=== PATIENT | male | born 1960 | race Caucasian/White ===

== ENCOUNTER 2016-11-26 10:27 | Inpatient (IN) | payer OTHER ==
[~2016-11-26] VITALS: Ht 172.7 cm; Wt 80.0 kg
[~2016-11-26 10:27] MED LIST: GABA-528 PO; WELLBUTRIN PO; [UNRECOGNIZED DRUG - REMARK]
[2016-11-26] MEDS ORDERED: SODIUM CHLORIDE 0.9% 1L BAG IV* STA (10:55)
[2016-11-26] MEDS ORDERED: PIPER-TAZO 3.375 GM IV (PMX) 100 ML IVPB STA (10:55)
[2016-11-26] MEDS ORDERED: CLINDAMYCIN 900 MG/D5W (PMX) 50 ML IVPB STA (10:55)
[2016-11-26] MEDS ORDERED: VANCOMYCIN 1 GM (PMX) 250 ML IVPB STA (10:55)
[2016-11-26] MEDS ORDERED: morphine 4 MG/ML VIAL IV STA (11:53)
[2016-11-26] MEDS ORDERED: ONDANSETRON 4 MG INJ IV STA (11:53)
[2016-11-26 12:12] LABS: BASOPHILS % 0.3 % (0.0-2.0); EOSINOPHILS % 0.3 % (0.0-7.0); HEMATOCRIT 39.6 % (42.0-52.0); HEMOGLOBIN 13.4 g/dl (14.0-18.0); LYMPHOCYTES # 1.7 10^3/ul (0.8-2.9); MEAN CORPUSCULAR HEMOGLOBIN 30.2 pg (29.0-33.0); MEAN CORPUSCULAR VOLUME 88.8 fl (82.0-101.0); MEAN PLATELET VOLUME 7.6 fl (7.4-10.4); MONOCYTE # 1.1 10^3/ul (0.3-0.9); MONOCYTES % 8.6 % (0.0-11.0); NEUTROPHILS % 77.8 % (39.0-77.0); PLATELET COUNT 275 10^3/UL (140-440); RED BLOOD COUNT 4.46 10^6/ul (4.70-6.10); RED CELL DISTRIBUTION WIDTH 13.5 % (11.5-14.5); UNCORRECTED WBC 12.9 10^3/ul (4.8-10.8); WHITE BLOOD COUNT 12.9 10^3/ul (4.8-10.8)
[2016-11-26 12:15] LABS: CONDITION 1
[2016-11-26 12:22] LABS: INR 0.93; PROTIME 12.5 Sec (12.2-14.2)
[2016-11-26 12:23] LABS: PARTIAL THROMBOPLASTIN TIME 29.7 Sec (25.0-35.0)
[2016-11-26] MEDS ORDERED: ACETAMINOPHEN 500 MG TAB PO STA (12:37)
--- NOTE | 2016-11-26 12:45 | RADRPT ---
PROCEDURE: XR right tibia/fibula. CLINICAL INDICATION: Leg pain TECHNIQUE: Two views available for review. COMPARISON: None available FINDINGS: There is a 7 x 18 mm soft tissue density involving the medial aspect of the proximal tibia. The osseous structures are normal in mineralization, architecture and alignment. No fractures are i dentified. No osseous lesions are identified. The joints are unremarkable. The soft tissues are u nremarkable. IMPRESSION: 7 x 18 mm soft tissue density involving the medial aspect of the proximal tibia. No osseous abnormality identified Recommendations: If clinically warranted MRI would be useful for further evaluation RPTAT: HGDB .Héctor Mcdonald MD, MD Date Time Electronically viewed and signed by .Héctor Mcdonald MD, on 11/26/2016 12:45 .B/
[2016-11-26 12:49] LABS: ALBUMIN 3.7 g/dl (3.3-4.9)
[2016-11-26 12:50] LABS: POTASSIUM 4.6 mmol/L (3.5-5.1)
[2016-11-26 12:51] LABS: ADD UMIC NO; URINE BILIRUBIN (Dip) NEGATIVE (NEGATIVE); URINE BLOOD (Dip) NEGATIVE (NEGATIVE); URINE COLOR LT. YELLOW (YELLOW); URINE GLUCOSE (Dip) NEGATIVE (NEGATIVE); URINE KETONES (Dip) NEGATIVE (NEGATIVE); URINE LEUKOCYTE ESTERASE (Dip) NEGATIVE (NEGATIVE); URINE NITRITE (Dip) NEGATIVE (NEGATIVE); URINE TOTAL PROTEIN (Dip) NEGATIVE (NEGATIVE); URINE UROBILINOGEN (Dip) 0.2 E.U./dL (0.1-1.0)
[2016-11-26 12:52] LABS: ALBUMIN/GLOBULIN RATIO 0.94; BILIRUBIN,INDIRECT 0.3 mg/dl (0-1.1); BILIRUBIN,TOTAL 0.3 mg/dl (0.2-1.3); CREATININE 0.7 mg/dl (0.61-1.24); TOTAL PROTEIN 7.6 g/dl (6.1-8.1)
[2016-11-26] MEDS ORDERED: IBUPROFEN 800 MG TAB PO ONE (13:00)
[2016-11-26 13:04] LABS: CALCIUM 8.8 mg/dl (8.4-10.2)
--- NOTE | 2016-11-26 13:20 | ERA ---
ER Documentation Chief Complaint Date/Time DATE: 11/26/16 TIME: 13:15 Chief Complaint FEVER AND FLU LIKE SYMPTOMS FOR UNK TIME. NO DISTRESS NOTED HPI This is a 56-year-old homeless male that presents to the emergency department complaining of a tactile fever shaking and chills for several days. He indicates that for the past 1 month he has had a painful discoloration of the skin on the right lower extremity. He denies any calf tenderness or swelling. He did not take any analgesic medication prior to arrival nor did he take any antipyretics. 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 He denies any abdominal pain. He has no chest pain or pressure that radiates to the neck or back or jaw. He has no shortness of breath at rest or exertion. He denies any hemoptysis hematemesis or melanotic stools. He denies productive or nonproductive cough. ROS All systems reviewed and are negative except as per history of present illness. Medications Home Meds Discontinued Reported Medications [Risperidal, Unk Dose, Bid] No Conflict Check 03/24/13 Gabapentin* (Gabapentin*) 800 Mg Tablet, PO HS 03/24/13 Gabapentin* (Gabapentin*) 800 Mg Tablet, 1600 MG PO DAILY 03/24/13 [Wellbutrin] No Conflict Check, 100 MG PO BID 03/24/13 Allergies Allergies: Coded Allergies: No Known Allergy (Unverified , 03/24/13) PMhx/Soc History of Surgery: Yes Hx Psychiatric Problems: Yes (DEPRESSION, BIPOLAR, SCHIZOPHRENIA) Hx Miscellaneous Medical Probl: Yes (HEP. C) Hx Alcohol Use: No Hx Substance Use: No Hx Tobacco Use: No Physical Exam Vitals Vital Signs Date Time Temp Pulse Resp B/P Pulse Ox O2 Delivery O2 Flow Rate FiO2 11/26/16 10:37 102.1 112 22 168/77 96 Physical Exam Constitutional:Well-developed. Well-nourished. Disheveled HEENT:Normocephalic. Atraumatic.Pupils were equal round reactive to light. Moist mucous membranes.No tonsillar exudates. No nasoseptal hematoma. No hemotympanum. No rhinorrhea. Neck: No nuchal rigidity. No lymphadenopathy. No posterior cervical spine tenderness or step-offs. Respiratory: Not using accessory muscles of respiration.Lungs were clear to auscultation bilaterally. No rhonchi. No rales. No wheezing. Cardiovascular: Tachycardic with regular rhythm.No murmurs. No rubs were appreciated.S1, S2 normal. Distal pulses are palpable 2+ bilaterally. GI: Abdomen was soft. Nontender. Non Distended. No pulsatile abdominal masses or bruits. No rebound. No guarding. Bowel sounds were present and normal. Muscle skeletal: Full range of motion of both the upper and lower extremities bilaterally.Normal muscle tone.No assymetrical calf tenderness or swelling. Negative Homans sign Skin: No petechia, no purpura. No lesions on the palms or the soles of the feet. No maculopapular rash. 2 cm x 2 cm well-circumscribed raised nodule on the anterior mid shaft of the right lower extremity with no surrounding subcutaneous emphysema. Surrounding erythema warmth with no fluctuance. Reproducible tenderness however pain not out of proportion to physical exam. Compartments were soft of the bilateral lower extremities. NEURO: Patient was alert, awake, orientated x3.No facial droop. Gait observed and normal with no ataxia.Speech had regular rate and rhythm. No focal neurological deficits. Result Diagram: 11/26/16 1145 11/26/16 1145 Results 24 hrs Laboratory Tests Test 11/26/16 11:45 11/26/16 11:56 11/26/16 12:40 Activated Partial Thromboplast Time 29.7Sec Alanine Aminotransferase (ALT/SGPT) 81IU/L Albumin 3.7g/dl Albumin/Globulin Ratio 0.94 Alkaline Phosphatase 73IU/L Amylase Level 119U/L Anion Gap 15 Aspartate Amino Transf (AST/SGOT) 65IU/L Basophils # 0.010^3/ul Basophils % 0.3% Blood Urea Nitrogen 15mg/dl Calcium Level 8.8mg/dl Carbon Dioxide Level 28mmol/L Chloride Level 97mmol/L Creatinine 0.70mg/dl Direct Bilirubin 0.00mg/dl Eosinophils # 0.010^3/ul Eosinophils % 0.3% Globulin 3.90g/dl Glucose Level 87mg/dl Hematocrit 39.6% Hemoglobin 13.4g/dl INR International Normalized Ratio 0.93 Indirect Bilirubin 0.3mg/dl Lactic Acid Level 1.3mmol/L Lipase 307U/L Lymphocytes # 1.710^3/ul Lymphocytes % 13.0% Mean Corpuscular Hemoglobin 30.2pg Mean Corpuscular Hemoglobin Concent 34.0g/dl Mean Corpuscular Volume 88.8fl Mean Platelet Volume 7.6fl Monocytes # 1.110^3/ul Monocytes % 8.6% Neutrophils # 10.010^3/ul Neutrophils % 77.8% Nucleated Red Blood Cells # 0.010^3/ul Nucleated Red Blood Cells % 0.0/100WBC Platelet Count 86292^3/UL Potassium Level 4.6mmol/L Prothrombin Time 12.5Sec Prothrombin Time Ratio 1.0 Red Blood Count 4.4610^6/ul Red Cell Distribution Width 13.5% Sodium Level 135mmol/L Total Bilirubin 0.3mg/dl Total Protein 7.6g/dl White Blood Count 12.910^3/ul Urine Bilirubin NEGATIVE Urine Clarity CLEAR Urine Color LT. YELLOW Urine Glucose NEGATIVE% Urine Hemoglobin NEGATIVE Urine Ketones NEGATIVE Urine Leukocyte Esterase NEGATIVE Urine Nitrite NEGATIVE Urine Specific Foss 1.020 Urine Total Protein NEGATIVE Urine Urobilinogen 0.2 E.U./dL Urine pH 8.0 Ethyl Alcohol Level < 10.0mg/dl Current Medications Medications (Trade) Dose Ordered Sig/Camilla Route PRN Reason Start Time Stop Time Status Last Admin Dose Admin Sodium Chloride 2480 ml 2,480 ml BOLUS OVER 2 HOURS STAT IV* 11/26/16 10:55 11/26/16 10:57 DC 11/26/16 11:29 Vancomycin HCl 250 ml @ 125 mls/hr ONCE STAT IVPB 11/26/16 10:55 11/26/16 12:54 DC 11/26/16 13:22 Clindamycin HCl/ Dextrose 50 ml @ 50 mls/hr ONCE STAT IVPB 11/26/16 10:55 11/26/16 11:54 DC 11/26/16 13:22 Piperacillin Sod/ Tazobactam Sod (Zosyn 3.375gm/ 100 ml (Pmx)) 100 ml @ 100 mls/hr ONCE STAT IVPB 11/26/16 10:55 11/26/16 11:54 DC 11/26/16 11:29 Morphine Sulfate (morphine) 4 mg ONCE STAT IV 11/26/16 11:53 11/26/16 11:54 DC 11/26/16 12:54 Ondansetron HCl (Zofran Inj) 4 mg ONCE STAT IV 11/26/16 11:53 11/26/16 11:54 DC 11/26/16 12:54 Acetaminophen (Tylenol Tab) 1,000 mg ONCE STAT PO 11/26/16 12:37 11/26/16 12:38 DC 11/26/16 12:54 Ibuprofen (Motrin) 800 mg ONCE ONCE PO 11/26/16 13:00 11/26/16 13:01 DC 11/26/16 12:54 Procedures/MDM The patient presented to the emergency department with a spreading erythematous superficial infection of the skin and subcutaneous tissues. My differential diagnosis included but was not limited to necrotizing fasciitis, lymphangitis, thrombophlebitis, deep vein thrombosis, allergic reaction, neoplasm, gout or abscess. Predisposing factors of the progressive spread of erythema, warmth, pain and tenderness was considered such as lymphedema, tinea pedis, open wounds, prior trauma or surgery, pre-existing skin lesion (furuncle), retained foreign body, injection drug use or vascular or immune compromise. The patient was placed on antibiotics to cover Staphylococcus aureus, including resistant strains such as community-acquired methicillin-resistant S. aureus. The patient at this time did not have any evidence of necrotizing fasciitis his pain was not of proportion to physical exam. He did have leukocytosis with a significant fever and does have significant risk factors however for development of necrotizing fasciitis and therefore he will be admitted and prophylactically started on broad-spectrum antibiotics which included clindamycin, vancomycin, Zosyn. I obtained a CRP and ESR and his lactic acid was normal. There is no evidence of renal failure at this time. Influenza is currently pending. The patient will undergo an MRI of his lower extremity to rule out osteomyelitis but at this time there is no evidence of compartment syndrome and again there is no evidence of necrotizing fasciitis that would require emergent surgical intervention with a fasciotomy. A two-view radiograph of the right lower extremity was ordered and reviewed by myself and indicated to followin x 18 mm soft tissue density involving the medial aspect of the proximal tibia. No osseous abnormality identified The patient will be admitted in serious condition to the hospital is Dr. Waite with an anticipated stay of greater than 2 midnights Departure Diagnosis: Primary Impression: Fever Qualified Code: R50.9 - Fever, unspecified fever cause Additional Impressions: Sepsis affecting skin Osteomyelitis Qualified Code: M86.161 - Acute osteomyelitis of right tibia Condition: Serious TONAJOSEF Nov 26, 2016 13:20
[2016-11-26] MEDS ORDERED: ACETAMINOPHEN 325 MG TAB PO PRN ×2 (13:30→16:30)
[2016-11-26] MEDS ORDERED: ONDANSETRON 4 MG INJ IV PRN ×2 (13:30→16:30)
[2016-11-26 14:20] VITALS: TEMP 100.3
[2016-11-26 15:00] VITALS: BP 118/57; PULSE 101; RESP 20
[2016-11-26 15:37] VITALS: BP 118/57; RESP 22
[2016-11-26] MEDS ORDERED: ACETAMINOPHEN 650 MG SUPP PR PRN (16:30)
[2016-11-26] MEDS ORDERED: NACL 0.9% 3 ML SYG IV SCH (16:30)
[2016-11-26] MEDS ORDERED: DOCUSATE SODIUM 100 MG CAP PO PRN (16:30)
[2016-11-26] MEDS ORDERED: morphine 2 MG INJ IV PRN (16:30)
[2016-11-26 16:45] VITALS: Ht 172.7 cm; Wt 80.0 kg
[2016-11-26 16:57] LABS: BARBITURATES Negative (NEGATIVE); BENZODIAZEPINES Negative (NEGATIVE); CANNABINOIDS Negative (NEGATIVE); COCAINE Negative (NEGATIVE); OPIATES Negative (NEGATIVE)
[2016-11-26] MEDS ORDERED: VANCOMYCIN IV PER PHARMACY XX SCH (17:30)
[2016-11-26] MEDS: D5W-0.45 NACL + KCL 20 MEQ 1,000 ML IV SCH (17:45)
[2016-11-26] MEDS: CEFTRIAXONE 1 GM/50 ML (PMX) 50 ML IVPB SCH (17:48)
--- NOTE | 2016-11-26 18:03 | CONS ---
DATE OF ADMISSION: 11/26/2016 DATE OF CONSULTATION: 11/26/2016 TYPE OF CONSULTATION: Infectious Disease. REASON FOR CONSULTATION: Antibiotic management. HISTORY OF PRESENT ILLNESS: Lex Nguyen is a 56-year-old homeless male who presents to the emergency r oom with fever and flu-like symptoms for an unknown time. He has had shaking chills for several day s. He indicates that over the past month he has had painful discoloration of his skin of the lower extremities. He denies any calf tenderness or swelling. He has a history of hepatitis secondary to IV drug abuse. He has not utilized any illicit drugs or alcohol for the last several years. He johnson s no chest pain, no pressure. His past problems include depression, bipolar affect and schizophreni a, and he has hepatitis C. PAST MEDICAL HISTORY: Operations as outlined. FAMILY HISTORY: SOCIAL HISTORY: He does not smoke, drink or abuse drugs. ALLERGIES: NONE TO PENICILLIN, SULFA OR FOODS. MEDICATIONS: Per chart. REVIEW OF SYSTEMS: As per HPI. PHYSICAL EXAMINATION: GENERAL: The patient is a well-developed, disheveled male who is alert, responsive, in no acute dis tress. VITAL SIGNS: Stable. He is afebrile. SKIN: Without generalized rash. HEENT: Within normal limits. NECK: Supple. LYMPH NODES: None palpable. CHEST: Decreased breath sounds at the bases. HEART: Without murmur or gallop. ABDOMEN: Soft, nontender, without organosplenomegaly or masses. EXTREMITIES: Without cyanosis, clubbing. He has 2 x 2 edema. He has a 2 x 2 cm well circumscribed raised nodule on the anterior mid shaft of the right lower extremity. No surrounding subcutaneous emphysema. He has surrounding erythema, warmth with no fluctuance. He has tenderness. RECTAL AND GENITAL: Deferred. NEUROLOGIC: No focal neurological abnormalities. ANCILLARY LABORATORY DATA: White count is 12.9, H and H of 13.4 and 39.6, platelet count 275,000. BUN and creatinine 15/0.7. IMPRESSION AND PLAN: The patient was given initial clindamycin and then started on vancomycin and Z osyn for cellulitis of his lower extremity. He does not have necrotizing fasciitis or deep vein thr ombophlebitis. He has erythema and essentially we want to rule out possibility of acute osteomyelit is of the mid shaft. His tibia and fibula showed a 7 x 18 soft tissue density involving the medial aspect of the proximal tibia. MRI may be warranted. I will dictate my findings to the hospitalist. Dictated By: FREYA MEDINA MD, JD/VIJAY Conf#: [id number] DID#: [id number]
--- NOTE | 2016-11-26 18:11 | HP ---
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 CHIEF COMPLAINT: Right lower extremity pain, and fever. HISTORY OF PRESENT ILLNESS: This is a 56-year-old gentleman with past medical history of drug abuse , hepatitis C, who according to the ER doctor, the patient is homeless, but patient stated that he l calvin in an apartment and does not have any roommate. He presented with right lower extremity dried ulcer and fever. The fever has been ongoing for the past 3 days. Patient has not sought any medica l treatment or seen a physician regarding this matter. Patient is very groggy, and it is difficult for him to stay awake during my physical examination. His urine drug screen was found to be negativ e for urine drug screen. Alcohol level was negative. The patient during the course of the emergency room was treated with Zosyn, clindamycin, vancomycin, normal saline, morphine, ibuprofen, and Zofr an. At this time, patient denies having any chest pain, shortness of breath, nausea, vomiting, diar zayra. No headache, dizziness, numbness, weakness. No change in visual acuity, diplopia, photophobi a. No abdominal pain. No nausea, vomiting, diarrhea. No heat and cold intolerance. No hair loss. No recent travel history. No sick contact. He denies having any use of sharing needles with anyon e. He denies any use of any heroin during his lifetime. PAST MEDICAL AND SURGICAL HISTORY: As above per HPI. MEDICATIONS: No active medications. ALLERGIES: NO KNOWN DRUG ALLERGIES. FAMILY HISTORY: Noncontributory. SOCIAL HISTORY: Presumably homeless. Positive for history of drug use as per james ceja. REVIEW OF SYSTEMS: As above per HPI. Otherwise, review of systems has been found to be negative. PHYSICAL EXAMINATION: VITAL SIGNS: Temperature 101.4, pulse 101, respiration rate 22, blood pressure 118/57, oxygen satur ation 96% on room air. GENERAL APPEARANCE: The patient is lying in bed comfortably, without any distress. He is awake, al ert, oriented. He is able to answer my questions properly. Mildly disheveled. He has several tatt oos all around his body, on his anterior chest, upper extremities, axillary region, and bilateral lo wer extremities. NECK: Supple. Trachea is midline. No lymph node. EYES AND ENT: Conjunctivae and lids are normal. Pupils are normal. Extraocular normal. Hearing g rossly normal. Lips are normal. Oral mucosa mildly dry. NECK: Supple. Trachea is midline. No lymphadenopathy. RESPIRATORY: Effort is normal. Clear to auscultation bilaterally. CARDIOVASCULAR: Normal S1, S2. Regular rhythm and rate. No murmur, no bruits, no edema. Peripher al pulses, radial pulses palpable. Cap refill is normal. CHEST: Normal expansion of thorax during inspiration. GASTROINTESTINAL: Abdomen is soft, nontender, not distended. Bowel sounds present. No guarding, n o rebound. GENITOURINARY: Deferred. MUSCULOSKELETAL: Upper and lower extremities within normal limits. There is dry ulcer at the anter ior aspect of his right armstrong, nontender. There is no evidence of erythema. NEUROLOGIC: Cranial nerves II through XII are grossly intact. PSYCHIATRIC: He is easily arousable. Able to follow commands. LABS: UDS is negative. WBC 12.9, hemoglobin 13.4, hematocrit 39.6, platelets 275. Sodium 135, pot assium 4.6, chloride 97, bicarbonate 28, BUN 15, creatinine 0.70, glucose 87, lactic acid negative a t 1.3, AST 65, ALT 81. CRP 3.2, lipase 307. The rest of the LFTs are within normal limits. ASSESSMENT AND PLAN: 1. Questionable osteomyelitis of the right lower extremity with x-ray finding of 7 x 18 mm soft tis eric density involving the medial aspect of the proximal tibia. This also could be secondary to an ab scess versus cellulitis. Infectious disease doctor has been consulted. Patient has been placed on cefepime and vancomycin. Follow up ID recommendation. Obtain MRI of the right lower extremity. 2. History of hepatitis C, with normal LFTs. 3. Pancreatitis. At this time, make patient n.p.o., IV fluid. Follow up lipase level in a.m. In case the lipase level continues to be elevated, will obtain a GI consultation. 4. For deep venous thrombosis, on Lovenox. 4. For gastrointestinal prophylaxis, on proton pump inhibitor. 5. We will continue to monitor patient closely. Further recommendations, management, and treatment as per clinical course. Total amount of time was spent for evaluation of patient and admission workup, 40 minutes. Dictated By: IRIS COTTRELL/VIJAY Conf#: [id number] [facility]#: [id number]
[2016-11-26 19:25] VITALS: BP 146/76; RESP 20
[2016-11-26] MEDS: VANCOMYCIN 1 GM in NS 250 ML IVPB SCH (20:42)
[2016-11-27] MEDS: VANCOMYCIN 1 GM in NS 250 ML IVPB SCH ×2 (05:20→12:41)
[2016-11-27] MEDS: D5W-0.45 NACL + KCL 20 MEQ 1,000 ML IV SCH ×2 (05:29→12:41)
[2016-11-27] MEDS ORDERED: PANTOPRAZOLE (EC) 40 MG TAB PO SCH (06:00)
[2016-11-27 08:30] VITALS: BP 134/75; RESP 18
[2016-11-27] MEDS ORDERED: ENOXAPARIN 40 MG/0.4 ML SYG SC SCH (09:00)
[2016-11-27 11:03] LABS: HAAIG REFLEX REFLEX FILED
[2016-11-27 11:11] LABS: BASOPHILS % 0.3 % (0.0-2.0); EOSINOPHILS # 0.1 10^3/ul (0.0-0.5); HEMATOCRIT 39.6 % (42.0-52.0); HEMOGLOBIN 13.5 g/dl (14.0-18.0); LYMPHOCYTES # 1.9 10^3/ul (0.8-2.9); LYMPHOCYTES % 19.7 % (15.0-51.0); MEAN CORPUSCULAR HEMOGLOBIN 30.4 pg (29.0-33.0); MEAN CORPUSCULAR HGB CONC 34.1 g/dl (32.0-37.0); MEAN CORPUSCULAR VOLUME 89.2 fl (82.0-101.0); MEAN PLATELET VOLUME 7.4 fl (7.4-10.4); MONOCYTE # 0.6 10^3/ul (0.3-0.9); MONOCYTES % 6.3 % (0.0-11.0); NEUTROPHIL # 6.9 10^3/ul (1.6-7.5); NEUTROPHILS % 72.7 % (39.0-77.0); PLATELET COUNT 262 10^3/UL (140-440); RED BLOOD COUNT 4.44 10^6/ul (4.70-6.10); RED CELL DISTRIBUTION WIDTH 13.9 % (11.5-14.5); UNCORRECTED WBC 9.5 10^3/ul (4.8-10.8); WHITE BLOOD COUNT 9.5 10^3/ul (4.8-10.8)
[2016-11-27 11:22] LABS: CREATININE 0.67 mg/dl (0.61-1.24)
[2016-11-27 11:23] LABS: CALCIUM 8.8 mg/dl (8.4-10.2)
[2016-11-27 11:24] LABS: MAGNESIUM 2.2 mg/dl (1.7-2.5)
[2016-11-27 11:38] LABS: CONDITION 1
[2016-11-27 12:13] LABS: HEPATITIS B CORE ANTIBODY REACTIVE (NEGATIVE)
[2016-11-27 12:19] LABS: THYROID STIMULATING HORMONE 0.951 MIU/L (0.465-4.680)
--- NOTE | 2016-11-27 13:18 | RADRPT ---
PROCEDURE: XR Chest. CLINICAL INDICATION: Cough and fever. TECHNIQUE: Single frontal view. COMPARISON: None. FINDINGS: The lungs are clear. The heart size is normal. There is no pleural effusion. There is no pneumothorax. IMPRESSION: 1. Normal chest radiograph. RPTAT: QQ .Devyn Orona MD, Date Time Electronically viewed and signed by .Devyn Orona MD, on 11/27/2016 13:18 .R/
--- NOTE | 2016-11-27 14:14 | PN ---
DATE: 11/27/2016 INFECTIOUS DISEASE PROGRESS NOTE SUBJECTIVE: The patient is awake, lying comfortably in bed. He is spiking fevers with a T-max yest erday of 101.4, current afebrile. WBC today 9.5, no shift, no bands. BUN 15, creatinine 0.67. MICROBIOLOGY: The patient had an influenza swab that was negative. ANTIMICROBIALS: 1. Vancomycin. 2. Rocephin. ALLERGIES: NONE. PHYSICAL EXAMINATION: GENERAL: Well-developed, middle-aged man who is awake, in no distress. HEENT: Head atraumatic, normocephalic. Sclerae anicteric. Buccal mucosa dry. NECK: Supple, trachea midline. CHEST: Rise symmetrical. Breath sounds diminished to bases. HEART: S1, S2. ABDOMEN: Soft, bowel sounds present. EXTREMITIES: Without cyanosis. The patient has a right lower extremity with dry scab below knee th at does not look infected. ASSESSMENT: 1. Febrile illness. 2. History of hepatitis C and drug abuse. 3. History of depression and anxiety. PLAN: The patient remains stable, currently afebrile. We are going to discontinue vancomycin, cont inue Levaquin, await for cultures. We will order a chest x-ray to make sure he does not have pneumo keagan. Of note, the patient has elevated lipase, 596 today. Dictated By: DINORAH VINCENT [employer]ET[employer] CARD MERCHANDISER for FREYA ORELLANA/VIJAY Conf#: [id number] DID#: [id number]
--- NOTE | 2016-11-27 15:30 | PN ---
Date/Time of Note Date/Time of Note DATE: 11/27/16 TIME: 15:29 Assessment/Plan VTE Prophylaxis VTE Prophylaxis Intervention: LMWH Lines/Catheters IV C[facility]ter Type [facility]from [facility] Peripheral IV Assessment/Plan Chief Complaint/Hosp Course ASSESSMENT AND PLAN: 1. Questionable osteomyelitis of the right lower extremity with x-ray finding of 7 x 18 mm soft tissue density involving the medial aspect of the proximal tibia. This also could be secondary to an abscess versus cellulitis. Infectious disease doctor has been consulted. Patient has been placed on cefepime and vancomycin. Follow up ID recommendation. Obtain MRI of the right lower extremity. 2. History of hepatitis C, with normal LFTs. 3. Pancreatitis. At this time, make patient n.p.o., IV fluid. Follow up lipase level in a.m. 4. For deep venous thrombosis, on Lovenox. 4. For gastrointestinal prophylaxis, on proton pump inhibitor. We will continue to monitor patient closely. Further recommendations, management, and treatment as per clinical course. Problems: Subjective 24 Hr Interval Summary Free Text/Dictation Patient denies of any chest pain or shortness of breath Denies of any abdominal pain Exam/Review of Systems Vital Signs Vitals Vital Signs Date Time Temp Pulse Resp B/P Pulse Ox O2 Delivery O2 Flow Rate FiO2 11/27/16 08:30 98.2 69 18 134/75 97 11/26/16 15:00 Room Air Intake and Output 11/26/16 11/26/16 11/27/16 15:00 23:00 07:00 Intake Total 450 ml 925 ml Balance 450 ml 925 ml Exam General: The patient is well-developed, Not in acute distress. HEENT: Atraumatic, normocephalic. The pupils are equal and round . Neck: Supple with full range of motion. Chest: Normal expansion of the thorax during inspiration Lungs: Clear to auscultation bilaterally Heart: Normal S1-S2, Regular rhythm and rate. Abdomen: Soft , nontender, nondistended , bowel sounds are present. Extremities: Normal to inspection, no edema no cyanosis, right lower extremity dry ulcer with no erythema Neurologic: Normal mental status,The patient is awake, alert and oriented . Results Result Diagram: 11/27/16 1055 11/27/16 1055 Results 24 hrs Laboratory Tests Test 11/26/16 16:37 11/26/16 22:42 11/27/16 10:55 Lactic Acid Level 1.4 0.8 Anion Gap 12 Basophils # 0.0 Basophils % 0.3 Blood Morphology Comment Blood Urea Nitrogen 15 Calcium Level 8.8 Carbon Dioxide Level 29 Chloride Level 102 Creatinine 0.67 Eosinophils # 0.1 Eosinophils % 1.0 Glucose Level 154 Hematocrit 39.6 L Hemoglobin 13.5 L Hepatitis B Core Total Antibody REACTIVE H Hepatitis B Surface Antigen NEGATIVE Hepatitis C Antibody REACTIVE H Lipase 596 H Lymphocytes # 1.9 Lymphocytes % 19.7 Magnesium Level 2.2 Mean Corpuscular Hemoglobin 30.4 Mean Corpuscular Hemoglobin Concent 34.1 Mean Corpuscular Volume 89.2 Mean Platelet Volume 7.4 Monocytes # 0.6 Monocytes % 6.3 Neutrophils # 6.9 Neutrophils % 72.7 Nucleated Red Blood Cells # 0.0 Nucleated Red Blood Cells % 0.0 Platelet Count 262 Potassium Level 4.0 Red Blood Count 4.44 L Red Cell Distribution Width 13.9 Sodium Level 139 Thyroid Stimulating Hormone (TSH) 0.951 White Blood Count 9.5 # Medications Medications Current Medications Potassium Chloride/Dextrose/ Sod Cl (D5-1/2ns + KCl 20 Meq) 1,000 ml @ 75 mls/ hr [id number] IV Last administered on 11/27/16 12:41; Admin Dose 75 MLS/HR; Start 11/26/16 at 16:09 Ondansetron HCl (Zofran Inj) 4 mg Q6H PRN IV NAUSEA AND/OR VOMITING; Start at 16:30 Acetaminophen (Tylenol Tab) 650 mg Q6H PRN PO PAIN LEVEL 1-3 OR FEVER Last administered on 11/27/16 02:25; Admin Dose 650 MG; Start 11/26/16 at 16:30 Acetaminophen (Tylenol Supp) 650 mg Q6H PRN [place] PAIN LEVEL 1-3 OR FEVER; Start 11/26/16 at 16:30 Morphine Sulfate (morphine) 2 mg Q4H PRN IV SEVERE PAIN LEVEL 7-10; Start 11/26 at 16:30 Docusate Sodium (Colace) 100 mg Q12H PRN PO CONSTIPATION; Start 11/26/16 at 16: 30 Pantoprazole (Protonix Tab) 40 mg DAILY@06 PO Last administered on 11/27/16 05 :20; Admin Dose 40 MG; Start 11/27/16 at 06:00 Enoxaparin Sodium 40 mg 40 mg DAILY SC Last administered on 11/27/16 09:57; Admin Dose 40 MG; Start 11/27/16 at 09:00 Ceftriaxone Sodium 50 ml @ 100 mls/hr Q24H IVPB Last administered on 17:48; Admin Dose 100 MLS/HR; Start 11/26/16 at 17:30 Vancomycin HCl (Vancocin) 250 ml @ 125 mls/hr Q8H IVPB Last administered on 12:41; Admin Dose 125 MLS/HR; Start 11/26/16 at 21:00 Miscellaneous Information (*Rx Drug Level Order Reminder*) VANCO TROUGH @ 2, 000 ON... ONCE ONCE XX ; Start 11/27/16 at 20:00; Stop 11/27/16 at 20:01 IRIS KINNEY MD Nov 27, 2016 15:30
[2016-11-27] MEDS: CEFTRIAXONE 1 GM/50 ML (PMX) 50 ML IVPB SCH (17:01)
[2016-11-28 08:00] VITALS: BP 105/59; RESP 18
--- NOTE | 2016-11-28 08:01 | DS ---
Date/Time of Note Date/Time of Note DATE: 11/28/16 TIME: 07:50 Discharge Summary Admission/Discharge Info Admit Date/Time Nov 26, 2016 at 13:29 Discharge Date/Time Nov 27, 2016 at 17:15 Final Diagnosis Patient signed out AMA 1. Questionable osteomyelitis of the right lower extremity with x-ray finding of 7 x 18 mm soft tissue density involving the medial aspect of the proximal tibia. 2. History of hepatitis C, with normal LFTs. 3. Pancreatitis. Hospital Course This is a 56-year-old gentleman with past medical history of drug abuse, hepatitis C, who according to the ER doctor, the patient is homeless. He presented with right lower extremity dried ulcer and fever. The fever has been ongoing for the past 3 days. Patient has not sought any medical treatment or seen a physician regarding this matter. Patient is very groggy, and it is difficult for him to stay awake during my physical examination. His urine drug screen was found to be negative for urine drug screen. Alcohol level was negative. The patient during the course of the emergency room was treated with Zosyn, clindamycin, vancomycin, normal saline, morphine, ibuprofen, and Zofran. At this time, patient denies having any chest pain, shortness of breath , nausea, vomiting, diarrhea. No headache, dizziness, numbness, weakness. No change in visual acuity, diplopia, photophobia. No abdominal pain. No nausea, vomiting, diarrhea. No heat and cold intolerance. No hair loss. No recent travel history. No sick contact. He denies having any use of sharing needles with anyone. He denies any use of any heroin during his lifetime. Patient was diagnosed with pancreatitis and made NPO , IVF, pain meds , IV abx for his osteomyelitis. On 11/27/2016 decided to leave the hospital AGAINST MEDICAL ADVICE. He understood the risk of leaving the hospital may lead to worsening of his osteomyelitis, pancreatitis, worsening abdominal discomfort, or possible Home Meds Discontinued Reported Medications [Risperidal, Unk Dose, Bid] No Conflict Check 03/24/13 Gabapentin* (Gabapentin*) 800 Mg Tablet, PO HS 03/24/13 Gabapentin* (Gabapentin*) 800 Mg Tablet, 1600 MG PO DAILY 03/24/13 [Wellbutrin] No Conflict Check, 100 MG PO BID 03/24/13 Pending Labs Laboratory Tests Test 11/27/16 10:55 11/27/16 11:03 Anion Gap 12 (8-16) Basophils # 0.010^3/ul (0.0-0.1) Basophils % 0.3% (0.0-2.0) Blood Morphology Comment Blood Urea Nitrogen 15mg/dl (7-20) Calcium Level 8.8mg/dl (8.4-10.2) Carbon Dioxide Level 29mmol/L (21-31) Chloride Level 102mmol/L (97-110) Creatinine 0.67mg/dl (0.61-1.24) Eosinophils # 0.110^3/ul (0.0-0.5) Eosinophils % 1.0% (0.0-7.0) Glucose Level 154mg/dl (70-220) Hematocrit 39.6% (42.0-52.0) Hemoglobin 13.5g/dl (14.0-18.0) Hepatitis B Core Total Antibody REACTIVE (NEGATIVE) Hepatitis B Surface Antigen NEGATIVE (NEGATIVE) Hepatitis C Antibody REACTIVE (NEGATIVE) Lipase 596U/L (23-300) Lymphocytes # 1.910^3/ul (0.8-2.9) Lymphocytes % 19.7% (15.0-51.0) Magnesium Level 2.2mg/dl (1.7-2.5) Mean Corpuscular Hemoglobin 30.4pg (29.0-33.0) Mean Corpuscular Hemoglobin Concent 34.1g/dl (32.0-37.0) Mean Corpuscular Volume 89.2fl (82.0-101.0) Mean Platelet Volume 7.4fl (7.4-10.4) Monocytes # 0.610^3/ul (0.3-0.9) Monocytes % 6.3% (0.0-11.0) Neutrophils # 6.910^3/ul (1.6-7.5) Neutrophils % 72.7% (39.0-77.0) Nucleated Red Blood Cells # 0.010^3/ul (0.0-0.0) Nucleated Red Blood Cells % 0.0/100WBC (0.0-0.0) Platelet Count 04237^3/UL (140-440) Potassium Level 4.0mmol/L (3.5-5.1) Red Blood Count 4.4410^6/ul (4.70-6.10) Red Cell Distribution Width 13.9% (11.5-14.5) Sodium Level 139mmol/L (135-144) Thyroid Stimulating Hormone (TSH) 0.951MIU/L (0.465-4.680) White Blood Count 9.510^3/ul (4.8-10.8) Hepatitis A IgM Antibody NON-REACTIVE (NON-REACTIVE) IRIS KINNEY MD Nov 28, 2016 08:00
== END 2016-11-27 17:15 | disposition left against medical advice (07) | DRG 539 ==
LOC: E/R 10:27 → EDBD 10:27 → MS2 13:29
PROVIDERS: ADMIT Family Medicine; ATTEND Family Medicine
DX: M86.8X6 Other osteomyelitis, lower leg (principal); K85.90 Acute pancreatitis without necrosis or infection, unspecified; L03.115 Cellulitis of right lower limb; F32.9 Major depressive disorder, single episode, unspecified; Z86.19 Personal history of other infectious and parasitic diseases; Z59.0 Homelessness; F20.9 Schizophrenia, unspecified; F41.9 Anxiety disorder, unspecified; Z87.898 Personal history of other specified conditions
CPT/HCPCS: 71010; 73590; 80048; 80053; 80306; 80307; 81003; 82150; 83605; 83690; 83735; 84443; 85025; 85610; 85651; 85730; 86140; 86704; 86709; 86803; 87040; 87086; 87340; 87400; 96365; 96366; 96368; 96375; J0696; J1650; J2270; J2405; J2543; J3370; J3480; J7030

== ENCOUNTER 2019-03-11 14:50 | Emergency (ER) | payer OTHER ==
[~2019-03-11] VITALS: Ht 175.3 cm; Wt 72.7 kg
[2019-03-11 15:10] VITALS: Ht 175.3 cm; Wt 72.7 kg
[2019-03-11] MEDS ORDERED: FENTAnyl 50 MCG/ML VIAL IV ONE (16:30)
[2019-03-11] MEDS ORDERED: DIPHTH/TET/ACEL PERTUSS (ADULT) 0.5 ML VIAL IM* ONE (16:30)
[2019-03-11] MEDS ORDERED: LIDOCAINE 1% (MDV) 20 ML INJ SC ONE (18:00)
[2019-03-11] MEDS ORDERED: HYDROmorphONE 0.5 MG/0.5 ML SYG IV STA (19:38)
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
[2019-03-11] MEDS ORDERED: BACITRACIN 0.9 GM OINT TOP ONE (23:30)
[2019-03-11] MEDS ORDERED: OXYC5CAP17 PO (23:31)
[2019-03-11 23:55] VITALS: BP 163/103; PULSE 78; RESP 16
[2019-03-12] MEDS ORDERED: HYDROmorphONE 2 MG/ML SYG IV ONE (01:52)
== END 2019-03-12 07:21 | disposition home or self-care (01) ==
LOC: E/R 14:50
DX: S42.022A Displaced fracture of shaft of left clavicle, initial encounter for closed fracture (principal); S81.811A Laceration without foreign body, right lower leg, initial encounter; F17.210 Nicotine dependence, cigarettes, uncomplicated; V18.2XXA Unspecified pedal cyclist injured in noncollision transport accident in nontraffic accident, initial encounter; Z23 Encounter for immunization
CPT/HCPCS: 71045; 73000; 73590; 90471; 90715; 96374; 96375; 96376; J1170; J3010; Z7502; Z7610